=== PATIENT | male | born 1990 | race African-American/Black ===

== ENCOUNTER 2016-11-30 15:35 | Emergency (ER) | payer SELFPAY ==
[~2016-11-30] VITALS: Ht 172.7 cm; Wt 71.5 kg
[~2016-11-30 15:35] MED LIST: IBUP-232 PO; LORT5TAB PO; Z.0.NO CURRENT MEDS
[2016-11-30 15:36] VITALS: BP 121/73; PULSE 58; RESP 20; TEMP 98.1; O2SAT 99
--- NOTE | 2016-11-30 15:40 | PD ---
Physical Exam Time Seen by Provider: 15:40 Narrative L ear pressure, foreign body sensation which started today at work. Vital signs reviewed. Seen at triage desk. Awaiting bed placement. Data Data Last Documented VS Vital Signs Date Time Temp Pulse Resp B/P Pulse Ox O2 Delivery O2 Flow Rate FiO2 11/30/16 15:36 98.1 58 20 121/73 99 Room Air [facility] Medical Record Reviewed: Yes Supervised Visit with JULIÁN: Naga Rice November 30, 2016 15:40
[2016-11-30] MEDS ORDERED: CARB6.5S5 EACH EAR (16:23)
--- NOTE | 2016-11-30 16:24 | PD ---
HPI Chief Complaint: ENT Complaint Time Seen by Provider: 16:20 Travel History International Travel<30 days: No Contact w/Intl Traveler<30days: No Traveled to known affect area: No History of Present Illness HPI 26-year-old male presents emergency Department with complaint of left ear pain and pressure for the last 3-4 days. Reports subjective fever and chills. Denies nausea, vomiting. Denies nasal congestion, sore throat, cough. Denies drainage from the ear. He says he has wax in his left ear and has tried getting it out with hydrogen peroxide with no success. Has taken ibuprofen with some relief of pain. No known allergies. Has no other medical complaints. No other modifying factors or associated signs and symptoms. PFSH Past Medical History Medical History: Denies Significant Hx Tetanus Vaccination: < 5 Years Influenza Vaccination: No Past Surgical History Surgical History: No Previous Surgery Social History Alcohol Use: Yes (occu) Tobacco Use: Yes (daily) Substance Use: No Allergies-Medications (Allergen,Severity, Reaction): Coded Allergies: No Known Allergies (Verified , 06/16/09) Reported Meds & Prescriptions Reported Meds & Active Scripts Active Ibuprofen 800 Mg Tab 800 Mg PO Q6HR PRN Ciprofloxacin Opth Drops (Ciprofloxacin HCl) 0.3% Soln 2 Drop EACH EAR BID 7 Days while awake x 5 days. Debrox Otic Drops (Carbamide Peroxide Otic Drops) 6.5% Soln 5-10 Drop EACH EAR BID PRN up to 4 days. Lortab 5/500 (Acetaminophen/Hydrocodone Bitart) 5 Mg/500 Mg Tab 1 Tab PO Q4HPRN FOR PAIN Motrin (Ibuprofen) 600 Mg Tab 600 Mg PO TID Reported No Current Meds (Miscellaneous Medication) [facility] [place] Review of Systems Except as stated in HPI: all other systems reviewed are Neg Physical Exam Narrative GENERAL: Well-nourished, well-developed male patient, in no acute distress; afebrile, nontoxic-appearing SKIN: Warm and dry. No rash. HEAD: Atraumatic. Normocephalic. EYES: Pupils equal and round. No scleral icterus. No injection or drainage. ENT: Mucosa pink and moist. No erythema or exudates. No uvular edema. No uvular , palatal, or tonsillar deviation. Airway patent. EARS: Bilateral pinnae and external canals appear within normal limits. Unable to visualize bilateral tympanic membrane secondary to cerumen impaction. NECK: Trachea midline. No lymphadenopathy. CARDIOVASCULAR: Regular rate. RESPIRATORY: No accessory muscle use. GASTROINTESTINAL: Flat.Flat. MUSCULOSKELETAL: No obvious deformities. No clubbing. No cyanosis. No edema. NEUROLOGICAL: Awake and alert. Oriented 3. No obvious cranial nerve deficits. Motor grossly within normal limits. Normal speech. Moves all extremities. 5/5 strength to all extremities. PSYCHIATRIC: Appropriate mood and affect; insight and judgment normal. Data Data Last Documented VS Vital Signs Date Time Temp Pulse Resp B/P Pulse Ox O2 Delivery O2 Flow Rate FiO2 11/30/16 15:36 98.1 58 20 121/73 99 Room Air Orders Ear Irrigation (11/30/16 16:19) [facility] Medical Decision Making Medical Screen Exam Complete: Yes Emergency Medical Condition: Yes Medical Record Reviewed: Yes Differential Diagnosis Otitis media, otitis externa, cerumen impaction, foreign body Narrative Course 26-year-old male with bilateral cerumen impaction. See my procedure note for cerumen disimpaction. After cerumen impaction removal bilateral ear canals are erythematous and consistent with otitis externa. Was unable to remove left impaction completely and was unable to visualize tympanic membrane. DeBrox, ciprofloxacin antibiotic drops, and ibuprofen prescribed for home. Patient verbalizes understanding and agreement with treatment plan. Patient is medically cleared and stable for discharge. Discussed reasons to return to the emergency department. Instructed patient to follow up with primary care provider. Patient agrees with treatment plan. The patients vital signs are stable and the patient is stable for outpatient follow-up and treatment. Patient discharged home, stable and in no acute distress. Diagnosis Primary Impression: Bilateral impacted cerumen Additional Impression: Otitis externa of both ears Qualified Code: H60.93 - Otitis externa of both ears, unspecified chronicity, unspecified type Referrals: Primary Care Physician Patient Instructions: Cerumen Impaction (ED), General Instructions Departure Forms: Tests/Procedures, Work Release Enter return to work date: December 01, 2016 Additional Instructions: Debrox Otic drops as prescribed Ibuprofen or Tylenol as directed and as needed to reduce pain Follow-up with primary care provider Return to the emergency department immediately with worsening of symptoms Med/Other Pt SpecificInfo: Prescription(s) given Scripts Ibuprofen 800 Mg Asb644 Mg PO Q6HR PRN (PAIN) #30 TAB Ref 0 Prov:Lauren Martin 11/30/16 Ciprofloxacin Opth Drops 0.3% Soln2 Drop EACH EAR BID 7 Days Ref 0 while awake x 5 days. Prov:Lauren Martin 11/30/16 Carbamide Peroxide Otic Drops (Debrox Otic Drops)6.5% Soln5-10 Drop EACH EAR BID PRN (Ear Wax Removal) #1 BOTTLE Ref 0 up to 4 days. Prov:Lauren Martin 11/30/16 Disposition: 01 DISCHARGE HOME Condition: Stable Lauren Martin November 30, 2016 16:24
[2016-11-30] MEDS ORDERED: IBUP800T23 PO (17:19)
[2016-11-30] MEDS ORDERED: CIPR0.3S2 EACH EAR (17:19)
== END 2016-11-30 17:44 | disposition home or self-care (01) ==
LOC: NEPD 15:35
DX: H61.23 Impacted cerumen, bilateral (principal); H60.93 Unspecified otitis externa, bilateral; Z72.0 Tobacco use
CPT/HCPCS: 99283